=== PATIENT | male | born 1995 | race Caucasian/White ===

== ENCOUNTER 2020-11-23 16:30 | Emergency (ER) | payer SELFPAY ==
[~2020-11-23] VITALS: Ht 177.8 cm; Wt 59.0 kg
[~2020-11-23 16:30] MED LIST: Amoxicillin875 MG PO; Augmentin 875-1 EACH PO; IBUP800 PO; Norco 5-325 Ta1 EACH PO
[2020-11-23 17:01] LABS: BASOPHILS ABSOLUTE AUTO 0.05 K/mm3 (0.00-0.23); BASOPHILS PERCENT AUTO 0 % (0-2); EOSINOPHILS ABSOLUTE AUTO 0.03 K/mm3 (0.00-0.68); EOSINOPHILS PERCENT AUTO 0 % (0-6); Hematocrit 44.8 % (37.0-53.0); Hemoglobin 15.2 g/dL (13.5-17.5); IMMATURE GRAN ABSOLUTE AUTO 0.03 K/mm3 (0.00-0.10); IMMATURE GRAN PERCENT AUTO 0 % (0-1); LYMPHOCYTES ABSOLUTE AUTO 1.81 K/mm3 (0.84-5.20); LYMPHOCYTES PERCENT AUTO 14 % (21-46); MONOCYTES ABSOLUTE AUTO 0.78 K/mm3 (0.16-1.47); MONOCYTES PERCENT AUTO 6 % (4-13); Mean Corpuscular HGB 31.6 pg (26.0-34.0); Mean Corpuscular HGB Conc 33.9 g/dL (31.5-36.5); Mean Corpuscular Volume 93 fL (80-100); Mean Platelet Volume 10.4 fL (9.1-12.4); NEUTROPHILS ABSOLUTE AUTO 9.94 K/mm3 (1.96-9.15); NEUTROPHILS PERCENT AUTO 79 % (41-73); Platelet Count 267 K/mm3 (150-400); RDW Standard Deviation 41.6 fL (35.1-46.3); Red Blood Cell Count 4.81 M/mm3 (4.30-5.90); White Blood Cell Count 12.64 K/mm3 (4.00-11.30)
[2020-11-23 17:32] LABS: Alanine Aminotransfer (ALT/SGP 25 U/L (12-78); Albumin, Blood 4.4 g/dL (3.4-5.0); Albumin/Globulin Ratio 1.1 (0.8-1.8); Alk Phos 81 U/L (50-136); Anion Gap 4 mmol/L (6-16); Aspartate Aminotrans (AST/SGOT 23 U/L (12-37); Bilirubin, Total 0.9 mg/dL (0.1-1.0); Blood Urea Nitrogen 9 mg/dL (8-24); Bun/Creatinine Ratio 9.5 (12.0-20.0); CO2, Blood 29 mmol/L (21-32); Calcium, Blood 9.1 mg/dL (8.5-10.1); Chloride, Blood 106 mmol/L (98-108); Creatinine, Blood 0.95 mg/dL (0.60-1.20); Glomerular Filtration Rate >60 (60-); Glucose, Blood 91 mg/dL (70-99); Potassium, Blood 4.2 mmol/L (3.5-5.5); Sodium, Blood 139 mmol/L (136-145); Total Protein, Blood 8.4 g/dL (6.4-8.2)
[2020-11-23] MEDS ORDERED: SULTRIDS PO (20:33)
[2020-11-23] MEDS ORDERED: CEPH500 PO (20:33)
== END 2020-11-23 20:40 | disposition home or self-care (01) ==
LOC: ER 16:30
PROVIDERS: Physician Assistant
DX: L03.113 Cellulitis of right upper limb (principal); Z87.891 Personal history of nicotine dependence
CPT/HCPCS: 36415; 80053; 83605; 85025; 99283; A9270

== ENCOUNTER 2021-08-26 11:40 | Emergency (ER) | payer OTHER ==
[~2021-08-26] VITALS: Ht 177.8 cm; Wt 60.3 kg
[~2021-08-26 11:40] MED LIST changes: +CEPH500 PO; +SULTRIDS PO
[2021-08-26] MEDS ORDERED: HYDR1TAB94 PO (13:45)
== END 2021-08-26 13:53 | disposition home or self-care (01) ==
LOC: ER 11:40
DX: S42.021A Displaced fracture of shaft of right clavicle, initial encounter for closed fracture (principal); Z87.891 Personal history of nicotine dependence; V89.9XXA Person injured in unspecified vehicle accident, initial encounter
CPT/HCPCS: 29105; 73000; 99283-25; A9270

== ENCOUNTER 2022-10-17 11:21 | Day surgery (SDC) | payer BC ==
[~2022-10-17] VITALS: Ht 177.8 cm; Wt 61.1 kg
[2022-10-17] VITALS (16 sets, daily range): BP systolic 125–156; BP diastolic 73–99
[~2022-10-17 11:21] MED LIST changes: +HYDR1TAB94 PO; +Norco 5-325 Ta1 EACH
--- NOTE | 2022-10-17 12:16 | NUR ---
Ambulatory in Day Surgery. History, Chart, Medications and Allergies reviewed before start of procedure.Lungs clear T/O to Auscultation. Patient confirms NPO status and agrees with scheduled surgery. Pre-Op teaching done. Pt verbalizes understanding. Patient States Post-Procedure ride home has been arranged.
--- NOTE | 2022-10-17 17:00 | NUR ---
DISCHARGE PT A&OX4, VSS/RA, LETA PO H20, PAIN MANAGED, GF/PIEROGI MAKER BEDSIDE, IV DC'D, DC INS PROVIDED. PT AND GF REP UNDERSTANDING THOSE INSTRUCTIONS INCLUDING DRESSING CHANGE 1 WEEK, FU APPT, OK TO SHOWER/NO TUB, DO ROM EXERCISES, WEAR SLING/NWB LUE. LEFT FLOOR WITH ALL PERSONAL POSSESSIONS INCLUDING DC PACKET, AQUACEL DRESSING AND 1 NORCO SCRIPT, DECLINED WC, WALKED OUT WITH RN/PIEROGI MAKER.
== END 2022-10-17 17:05 | disposition home or self-care (01) ==
LOC: ORSCMMR 11:21 → ORD 12:30 → ORSCMMR 17:05
PROVIDERS: Orthopaedic Surgery
PROC: 0PSJ04Z Reposition Left Radius with Internal Fixation Device, Open Approach (ICD-10-PCS; principal; 2022-10-17 12:30)
DX: S52.572A Other intraarticular fracture of lower end of left radius, initial encounter for closed fracture (principal); V00.841A Fall from standing electric scooter, initial encounter
CPT/HCPCS: C1713; J0690; J1100; J1170; J1885; J2405; J2704; J3010; J7120